=== PATIENT | male | born 1970 | race Caucasian/White ===

== ENCOUNTER → 2023-11-20 | Outpatient (CLI) | payer SELFPAY ==
--- NOTE | 2023-11-20 13:42 | CT_ITS ---
STUDY: CT SOFT TISSUE NECK WITH CONTRAST REASON FOR EXAM: Male, 53 years old. NECK SWELLING. Left-sided cervical pain during mastication. RADIATION DOSAGE (If Supplied By Facility): CTDIvol = ( 13.67 ) mGy, DLP = ( 915.24 ) mGycm TECHNIQUE: The patient was scanned in a multi-detector CT scanner. High resolution transaxial imaging was performed following intravenous administration of IV 75mL Isovue-370. Sagittal and coronal images were reconstructed. Individualized dose optimization techniques were used for this CT. COMPARISON: None. FINDINGS: Normal bilateral parotid glands. Normal bilateral financial cost analyst spaces. Normal bilateral parapharyngeal spaces. Normal bilateral carotid spaces. There is heterogeneous enlargement of the left submandibular gland with the dense 1.6 cm x 0.7 cm calcification. The left submandibular gland measures 3.5 cm x 2.4 cm. Normal visualized nasopharynx. Normal retropharyngeal space. Normal perivertebral space. Normal visualized bilateral faucial tonsils. The visualized tongue, tongue base and oropharynx are normal. The visualized cervical lymph nodes (levels I-) are within normal size limits, and maintain normal morphology. There is no demonstrated solid or cystic mass lesion. There is no abnormal contrast enhancement. Normal epiglottis, bilateral vallecula and hypopharynx. The pre-epiglottic and paraglottic adipose spaces are normal. Normal visualized bilateral piriform sinuses, aryepiglottic folds, vocal cords, and arytenoid-cricoid articulations. Normal subglottic trachea. 3.4 mm cyst in the inferior pole of the right lobe of the thyroid. Normal visualized pulmonary apices. Mild degree of mucosal thickening of the right maxillary sinus and ethmoid sinuses. There is mild degenerative changes of the cervical spine. CT/Soft Tissue Neck WITH Contrast IMPRESSION: Heterogeneous enlargement of the left submandibular gland with a dense calcification within it. This most likely represents calculus within the gland. Clinical correlation recommended. Electronically Signed: Jerry Crowder MD at 14:40 EST ,
== END | disposition home or self-care (01) ==
PROVIDERS: PCP Family Medicine; Referring Provider Otolaryngology; Visit Provider Otolaryngology
DX: R22.1 Localized swelling, mass and lump, neck (principal)
CPT/HCPCS: 70491; Q9967

== ENCOUNTER → 2024-02-16 | Outpatient (CLI) | payer SELFPAY ==
--- NOTE | 2024-02-16 | MASS_PTH ---
PATIENT: GENIE HERRERA LOC: [facility] U#:[id number] AGE/SX: 53/M ROOM: RE02/16/[address]: Dr. Luis Alberto Rosenberg MD : 1970 BED: DIS: 02/16/2024 SPEC #: [id number] RECD: 02/16/24 15:30 STATUS: GONSALO THOMAS #: [id number] DANILO: 02/16/24 00:[address]: Luis Alberto Rosenberg DEPT: SURGICAL PATHOLOGY RECD BY: Latosha Damon ENTERED: 02/17/24 07:29 SP TYPE: Mass OTHR DR: Dr. Shun Howell MD [facility] Tissues: Neck, NOS Procedures: Surgery Specimen Level IV HEADER OPERATION: Left excision submandibular gland PRE-OP DIAGNOSIS: Left neck mass TISSUE SUBMITTED: Left submandibular gland MICROSCOPIC DIAGNOSIS Left submandibular gland, excision: Diffuse moderate chronic inflammation. Ducts with focal squamous metaplasia. A large stone (2.8cm in greatest dimension). / 02/19/2024 MICROSCOPIC DESCRIPTION Slides are reviewed. GROSS DESCRIPTION Received in fixative is one container labeled with the patient's name and designated Left submandibular gland. The specimen consists of a piece of pink rivera glandular tissue weighing 12.8gm and measuring 4.5 x 3.0 x 2.0cm. Serial sections reveal a calcified stone measuring 2.8 x 1.5 x 1.0cm. [employer]her sections are submitted in 11 cassettes as follows: 1-10- Entire glandular tissue from one end to another, 11- special service representative portion of calcified stone after decalcification. NASRA/ 02/17/24 TC:3 CPT:33709,87287
== END | disposition home or self-care (01) ==
PROVIDERS: PCP Family Medicine; Referring Provider Otolaryngology; Visit Provider Otolaryngology
DX: R22.1 Localized swelling, mass and lump, neck (principal)
CPT/HCPCS: 88305